=== PATIENT | male | born 1995 | race Two or more races ===

== ENCOUNTER 2018-10-30 20:02 | Emergency (ER) | payer OTHER ==
[~2018-10-30] VITALS: Ht 180.3 cm; Wt 91.0 kg
[2018-10-31 00:24] VITALS: BP 129/84
== END 2018-10-31 00:24 | disposition home or self-care (01) ==
LOC: ER 20:02
DX: J06.9 Acute upper respiratory infection, unspecified (principal); F12.10 Cannabis abuse, uncomplicated
CPT/HCPCS: 99283